=== PATIENT | female | born 1945 | race Two or more races ===

== ENCOUNTER 2022-08-12 21:21 | Inpatient (IN) | payer MEDICAID ==
[~2022-08-12] VITALS: Ht 144.8 cm; Wt 57.1 kg
[2022-08-12 22:05] LABS: Basophils # (auto) 0 10 ^3/uL (0-0.2); Basophils % (auto) 0.6 % (0.0-2.0); Eosinophils # (auto) 0.1 10 ^3/uL (0-0.8); Eosinophils % (auto) 1.7 % (0.0-7.0); Hematocrit 35.7 % (36.0-46.0); Hemoglobin 12.2 g/dL (12.2-16.2); Lymphocytes # (auto) 1.6 10 ^3/uL (0.4-5.4); Lymphocytes % (auto) 29.3 % (10.0-50.0); Mean Corpuscular Hemoglobin 29.2 pg (28.0-32.0); Mean Corpuscular Hgb Conc. 34.3 g/dL (32.0-36.0); Mean Corpuscular Volume 85.1 fL (80.0-100.0); Monocytes # (auto) 0.5 10 ^3/uL (0-1.3); Monocytes % (auto) 9.5 % (0.0-12.0); Neutrophils # (auto) 3.1 10 ^3/uL (1.6-8.6); Neutrophils % (auto) 58.9 % (37.0-80.0); Nucleated Red Blood Cells % 0.1 %; Red Blood Cells 4.19 10^6/uL (4.0-5.20); Red Cell Distribution Width 13.8 % (11.8-14.3); White Blood Cell 5.3 10^3/uL (4.4-10.8)
[2022-08-12 22:24] LABS: Albumin 3.9 g/dL (3.4-5.0); BUN/Creatinine Ratio 18.1; Bilirubin, Total 0.5 mg/dL (0.2-1.0); Calcium 9.2 mg/dL (8.5-10.1); Potassium 4.8 mmol/L (3.5-5.1); Total Protein 7.2 g/dL (6.4-8.2)
[2022-08-12] MEDS ORDERED: MORPHINE SULFATE 4 MG/ML SYR/VIAL IM ONE (22:45)
[2022-08-12] MEDS ORDERED: ONDANSETRON ODT 4 MG TAB PO ONE (22:45)
[2022-08-13] MEDS ORDERED: PIPERACILLIN-TAZOB 3.375GM 100 ML IV ONE (01:30)
[2022-08-13] MEDS ORDERED: MORPHINE SULFATE INJ 2 MG/ml SYRG IV PRN (02:30)
[2022-08-13] MEDS ORDERED: ONDANSETRON HCL 4 MG/2 ML VIAL IV PRN (02:30)
[2022-08-13] MEDS: D5W/SOD CHLO 0.9% 1,000 ML IV SCH (03:21)
[2022-08-13] MEDS ORDERED: ASPI81CH59 PO (04:24)
[2022-08-13] MEDS ORDERED: LISI20TA28 PO (04:24)
[2022-08-13 05:00] VITALS: BP 111/42
[2022-08-13] MEDS: metroNIDAZOLE 500MG/100ML 100 ML IV SCH ×3 (06:28→21:25)
[2022-08-13 07:30] VITALS: BP 143/56
[2022-08-13 08:15] VITALS: BP 143/56
[2022-08-13] MEDS: cefTRIAXone 1GM/50ML D5W 50 ML IV SCH (11:27)
[2022-08-13] MEDS: PANTOPRAZOLE 40 MG/10 ML VIAL INJ IV SCH (11:28)
[2022-08-13] MEDS ORDERED: ATOR20TA50 PO (12:05)
[2022-08-13] MEDS ORDERED: HYDROcodone-ACET 5/325MG TAB PO PRN (12:15)
[2022-08-13 12:30] VITALS: BP 147/47
[2022-08-13 16:30] VITALS: BP 140/54
[2022-08-13] MEDS: ATORVASTATIN 20 MG TAB PO SCH (21:26)
[2022-08-13 22:00] VITALS: BP 117/37
[2022-08-14 05:00] VITALS: BP 108/33
[2022-08-14 05:03] LABS: Basophils # (auto) 0 10 ^3/uL (0-0.2); Basophils % (auto) 0.6 % (0.0-2.0); Eosinophils # (auto) 0.1 10 ^3/uL (0-0.8); Eosinophils % (auto) 1.6 % (0.0-7.0); Hematocrit 33.2 % (36.0-46.0); Hemoglobin 11.2 g/dL (12.2-16.2); Lymphocytes # (auto) 1.1 10 ^3/uL (0.4-5.4); Lymphocytes % (auto) 28.1 % (10.0-50.0); Mean Corpuscular Hemoglobin 28.9 pg (28.0-32.0); Mean Corpuscular Hgb Conc. 33.8 g/dL (32.0-36.0); Mean Corpuscular Volume 85.5 fL (80.0-100.0); Monocytes # (auto) 0.4 10 ^3/uL (0-1.3); Monocytes % (auto) 9.7 % (0.0-12.0); Neutrophils # (auto) 2.3 10 ^3/uL (1.6-8.6); Red Blood Cells 3.89 10^6/uL (4.0-5.20); Red Cell Distribution Width 13.6 % (11.8-14.3); White Blood Cell 3.8 10^3/uL (4.4-10.8)
[2022-08-14 05:39] LABS: Potassium 3.7 mmol/L (3.5-5.1)
[2022-08-14 05:45] LABS: Albumin 2.8 g/dL (3.4-5.0); BUN/Creatinine Ratio 20.6; Calcium 8.2 mg/dL (8.5-10.1)
[2022-08-14 05:48] LABS: Bilirubin, Total 0.5 mg/dL (0.2-1.0); Total Protein 6.1 g/dL (6.4-8.2)
[2022-08-14] MEDS: metroNIDAZOLE 500MG/100ML 100 ML IV SCH ×3 (05:52→21:50)
[2022-08-14] MEDS: D5W/SOD CHLO 0.9% 1,000 ML IV SCH ×2 (07:39→18:30)
[2022-08-14 08:00] VITALS: BP 143/56
[2022-08-14 08:41] VITALS: BP 126/91
[2022-08-14] MEDS: cefTRIAXone 1GM/50ML D5W 50 ML IV SCH (09:36)
[2022-08-14] MEDS: PANTOPRAZOLE 40 MG/10 ML VIAL INJ IV SCH (09:37)
[2022-08-14] MEDS: LISINOPRIL 20 MG TAB PO SCH (09:38)
[2022-08-14 12:30] VITALS: BP 167/79
[2022-08-14 17:00] VITALS: BP 140/78
[2022-08-14] MEDS: ATORVASTATIN 20 MG TAB PO SCH (21:51)
[2022-08-14 22:00] VITALS: BP 149/58
[2022-08-15 05:00] VITALS: BP 140/57
[2022-08-15] MEDS: metroNIDAZOLE 500MG/100ML 100 ML IV SCH ×2 (06:00→14:00)
[2022-08-15] MEDS: D5W/SOD CHLO 0.9% 1,000 ML IV SCH (07:50)
[2022-08-15 08:00] VITALS: BP 143/56
[2022-08-15 08:39] VITALS: BP 146/54
[2022-08-15] MEDS: PANTOPRAZOLE 40 MG/10 ML VIAL INJ IV SCH (09:11)
[2022-08-15] MEDS: cefTRIAXone 1GM/50ML D5W 50 ML IV SCH (09:11)
[2022-08-15] MEDS: LISINOPRIL 20 MG TAB PO SCH (09:12)
[2022-08-15] MEDS ORDERED: HYDR-4902 PO (11:52)
[2022-08-15] MEDS ORDERED: AMOX500T86 PO (11:52)
[2022-08-15 13:09] VITALS: BP 146/54
== END 2022-08-15 15:58 | disposition home or self-care (01) ==
LOC: ER 21:21 → OVERFLOW 08-13 02:24 → WEST WING 08-13 03:21
PROVIDERS: ADMIT Nurse Practitioner; ATTEND Hospitalist
DX: K80.00 Calculus of gallbladder with acute cholecystitis without obstruction (principal); N17.9 Acute kidney failure, unspecified; C23 Malignant neoplasm of gallbladder; E86.0 Dehydration; Z20.822 Contact with and (suspected) exposure to COVID-19; I10 Essential (primary) hypertension; Z85.028 Personal history of other malignant neoplasm of stomach
CPT/HCPCS: 36415; 74181; 78226; 80053; 83690; 85025; 87426; 96365; 96372; C9113; G0378; J0696; J2543; J3490; J7042; Q0162